=== PATIENT | male | born 1990 | race Caucasian/White ===

== ENCOUNTER 2023-05-20 09:59 | Outpatient (OUT) | payer SELFPAY ==
--- NOTE | 2023-05-20 10:22 | XR_ITS ---
[address] [address] Patient Name: GENI CAMPA MRN: [id number] date: 1990 Sex: M Assigned Patient Location: RAD Current Patient Location: [facility] Accession/Order Number: [id number] Exam Date: 05/20/2023 10:15 Report Date: 05/20/2023 11:03 At the request of: DAYANA DAMON Procedure: XR shoulder LT min 2V EXAM: XR shoulder LT min 2V HISTORY: Acute left shoulder pain M25.512 COMPARISON: None. TECHNIQUE: 3 views FINDINGS: No acute fracture or dislocation. Moderate degenerative change of the acromioclavicular and glenohumeral joints. Unremarkable soft tissues. XR/XR shoulder LT min 2V IMPRESSION: Degenerative changes as above. Electronically authenticated by: SHAHANA MCGHEE Date: 05/20/2023 11:03
== END 2023-05-20 10:00 | disposition home or self-care (01) ==
LOC: RAD 09:59
PROVIDERS: Visit Provider Orthopaedic Surgery
DX: M25.512 Pain in left shoulder (principal)
CPT/HCPCS: 73030